=== PATIENT | female | born 1990 | race Caucasian/White ===

== ENCOUNTER 2024-06-12 07:47 | Outpatient (CLI) | payer OTHER | END 2024-06-12 07:48 | disposition home or self-care (01) | LOC: ULT 07:47 | PROVIDERS: ATTEND Internal Medicine Gastroenterology | DX: R14.0 Abdominal distension (gaseous) (principal); R19.4 Change in bowel habit; F50.9 Eating disorder, unspecified; L50.9 Urticaria, unspecified; Z80.0 Family history of malignant neoplasm of digestive organs; Z83.719 Family history of colon polyps, unspecified | CPT/HCPCS: 76700 ==